=== PATIENT | male | born 1960 | race Caucasian/White ===

== ENCOUNTER → 2018-09-12 | Outpatient (CLI) | payer BC ==
[2018-09-12 15:55] LABS: HCT 42.5 % (39.0-53.0); HGB 14.4 gm/dL (13.0-17.5); MCH 27.5 pg (25.0-35.0); MCHC 33.9 g/dL (31.0-37.0); MCV 81.2 fL (80.0-100.0); Mean Platelet Volume 7.2; Platelet Count 253 k/uL (150-450); RBC 5.23 m/uL (4.30-5.90); RDW 14.3 % (11.5-15.5); WBC 8.4 k/uL (3.8-10.6)
[2018-09-12 20:24] LABS: Erythrocyte Sedimentation Rate 8 mm/hr (0-15)
[2018-09-13 01:01] LABS: Hemoglobin A1C 7.7 % (4.0-6.0)
[2018-09-13 01:47] LABS: Folate, Serum 13.4 ng/mL
[2018-09-13 02:11] LABS: Albumin/Globulin Ratio 2.38 (1.60-3.17); Anion Gap 9.6 mmol/L (4.00-12.00); Carbon Dioxide 25.4 mmol/L (21.6-31.8); Globulin 2.1 g/dL (1.6-3.3); Potassium 4.3 mmol/L (3.5-5.5); Total Bilirubin 0.5 mg/dL (0.3-1.2); Total Protein 7.1 g/dL (6.2-8.2)
[2018-09-13 02:12] LABS: C Reactive Protein 0.5 mg/dL (0.0-0.8); Magnesium 1.8 mg/dL (1.5-2.4)
[2018-09-14 06:34] LABS: Vit B1(Thiamine) 92 ug/L (38-122)
== END ==
LOC: LABWHC1 15:04
PROVIDERS: ATTEND Psychiatry & Neurology Pain Medicine
DX: G89.4 Chronic pain syndrome (principal); M79.7 Fibromyalgia; Z79.899 Other long term (current) drug therapy
CPT/HCPCS: 36415; 80053; 82306; 82550; 82607; 82746; 83036; 83519; 83735; 84207; 84425; 84446; 84590; 84591; 84597; 85027; 85652; 86140

== ENCOUNTER → 2018-10-26 | Outpatient (CLI) | payer BC | END | disposition home or self-care (01) | LOC: LABWHC1 15:51 | PROVIDERS: ATTEND Psychiatry & Neurology Pain Medicine | DX: Z51.81 Encounter for therapeutic drug level monitoring (principal) | CPT/HCPCS: 36415; 93005 ==